=== PATIENT | female | born 1950 | race Caucasian/White ===

== ENCOUNTER 2020-07-30 14:24 | Outpatient (AMBR) | payer MEDICARE, OTHER, SELFPAY ==
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
--- NOTE | 2020-07-14 14:30 | PT.ODAYNRPT ---
PT Outpatient Daily Note Date of Service: 07/14/20 OP Daily Note Visit Reasons: right knee post op Outpatient Physical Therapy Treatment Date: 07/14/20 Subjective: Pt's knee feels okay. Pt been using the CPM and is now up to 95 deg. Pt is walking a little more at home without her walker Objective: Please see flow chart for list of ther ex performed Assessment: partial SAQ due to quad weakness. cues to correct GT to increase EKATERINA for better balance in PB. Plan: Continue with PT Length of Time (minutes) of Treatment: 45 Minutes Office Procedures PT Procedures PT Date of Service: 07/10/20 OP PT Eval Mod Complex 30 minutes: Yes PT Procedures PT Date of Service: 07/14/20 Gait Training 15 minutes: Yes Therapeutic Exercise 30 minutes: Yes
--- NOTE | 2020-07-16 13:43 | PT.ODAYNRPT ---
PT Outpatient Daily Note Date of Service: 07/16/20 OP Daily Note Visit Reasons: right knee post op Outpatient Physical Therapy Treatment Date: 07/16/20 Subjective: Pt's knee is better. Pt is up to 100 deg in CPM. Pt's been practicing her exercises at home. Objective: Please see flow chart for list of ther ex performed Assessment: notice increase quad activation with SAQ and Quad set. Pt was able to tolerate sci fit for 6 mins with complete cycle Plan: Continue with PT Length of Time (minutes) of Treatment: 45 Minutes Office Procedures PT Procedures PT Date of Service: 07/16/20 Therapeutic Exercise 45 minutes: Yes PT Procedures PT Date of Service: 07/10/20 OP PT Eval Mod Complex 30 minutes: Yes PT Procedures PT Date of Service: 07/14/20 Gait Training 15 minutes: Yes Therapeutic Exercise 30 minutes: Yes
--- NOTE | 2020-07-18 14:19 | PT.ODAYNRPT ---
PT Outpatient Daily Note Date of Service: 07/18/20 OP Daily Note Visit Reasons: right knee post op Outpatient Physical Therapy Treatment Date: 07/18/20 Subjective: Pt mention that she feels better and was not as sore after last treatment session. Pt is up in the 100s with CPM machine Objective: Please see flow chart for list of ther ex performed Assessment: tolerate exercises with minimal pain Plan: Continue with PT Length of Time (minutes) of Treatment: 30 Minutes Office Procedures PT Procedures PT Date of Service: 07/16/20 Therapeutic Exercise 45 minutes: Yes PT Procedures PT Date of Service: 07/10/20 OP PT Eval Mod Complex 30 minutes: Yes PT Procedures PT Date of Service: 07/14/20 Gait Training 15 minutes: Yes Therapeutic Exercise 30 minutes: Yes PT Procedures PT Date of Service: 07/18/20 Therapeutic Exercise 30 minutes: Yes
--- NOTE | 2020-07-23 16:08 | PT.ODAYNRPT ---
PT Outpatient Daily Note Date of Service: 07/23/20 OP Daily Note Visit Reasons: right knee post op Outpatient Physical Therapy Treatment Date: 07/23/20 Subjective: Pt noted some redness and warmth on her knee. Further mention that over the weekend green pus seep throughout one of the incision. Earlier today she took a photo of the knee and surgeon prescribed her antibiotics. Pt stop using her walker with short distance and denies of knee buckling. Objective: Please see flow chart for list of ther ex performed Assessment: noted increase warmth and redness around patella region which indicate she may have a closed infection but has already consulted with surgeon. Pt's exercises was done with slower pace to decrease knee pain Plan: Continue with PT Length of Time (minutes) of Treatment: 40 Minutes Office Procedures PT Procedures PT Date of Service: 07/16/20 Therapeutic Exercise 45 minutes: Yes PT Procedures PT Date of Service: 07/10/20 OP PT Eval Mod Complex 30 minutes: Yes PT Procedures PT Date of Service: 07/14/20 Gait Training 15 minutes: Yes Therapeutic Exercise 30 minutes: Yes PT Procedures PT Date of Service: 07/18/20 Therapeutic Exercise 30 minutes: Yes PT Procedures PT Date of Service: 07/23/20 Therapeutic Exercise 45 minutes: Yes
--- NOTE | 2020-07-25 10:55 | PT.ODAYNRPT ---
PT Outpatient Daily Note Date of Service: 07/25/20 OP Daily Note Visit Reasons: right knee post op Outpatient Physical Therapy Treatment Date: 07/25/20 Subjective: Pt mention that her knee is better but sore. Objective: Please see flow chart for list of ther ex performed Assessment: tolerate exercises with minimal pain Plan: Continue with PT Length of Time (minutes) of Treatment: 40 Minutes Office Procedures PT Procedures PT Date of Service: 07/16/20 Therapeutic Exercise 45 minutes: Yes PT Procedures PT Date of Service: 07/10/20 OP PT Eval Mod Complex 30 minutes: Yes PT Procedures PT Date of Service: 07/14/20 Gait Training 15 minutes: Yes Therapeutic Exercise 30 minutes: Yes PT Procedures PT Date of Service: 07/18/20 Therapeutic Exercise 30 minutes: Yes PT Procedures PT Date of Service: 07/23/20 Therapeutic Exercise 45 minutes: Yes PT Procedures PT Date of Service: 07/25/20 Therapeutic Exercise 45 minutes: Yes
--- NOTE | 2020-07-29 09:25 | PT.ODAYNRPT ---
PT Outpatient Daily Note Date of Service: 07/28/20 OP Daily Note Visit Reasons: right knee post op Outpatient Physical Therapy Treatment Date: 07/28/20 Subjective: pt states her knee doing better but still needs more strengthening. Objective: see flow sheet. Assessment: pt ambulates with no AD. pt tends to compensate with hip versus working the knee during her lateral step ups. educated pt with demonstrations of correct form in which she understood but needs more practice. pt not aware of compensation since surgery. pt pleasant and cooperative. completed all ther ex with ice pack post treatment. Plan: continue POC per PT. Length of Time (minutes) of Treatment: 30 Minutes STRUCTURAL METAL WORKER Service Modifier Method I: Divide the number of min of care provided by the STRUCTURAL METAL WORKER/ASHLEY by the total min of care provided then multiply by 100. If greater than 11 percent modifier is required. Method II: Divide the total time of care provided to patient by 10 (round to the nearest whole number) and add 1 min. to set the minimum time requirement. If treatment total was 60 min., then 10% of 6 min Did STRUCTURAL METAL WORKER provide more than 10% of the care?: Yes PT CQ modifier applied: CQ Modifier applied Office Procedures PT Procedures PT Date of Service: 07/16/20 Therapeutic Exercise 45 minutes: Yes PT Procedures PT Date of Service: 07/28/20 Therapeutic Exercise 30 minutes: Yes PT Procedures PT Date of Service: 07/10/20 OP PT Eval Mod Complex 30 minutes: Yes PT Procedures PT Date of Service: 07/14/20 Gait Training 15 minutes: Yes Therapeutic Exercise 30 minutes: Yes PT Procedures PT Date of Service: 07/18/20 Therapeutic Exercise 30 minutes: Yes PT Procedures PT Date of Service: 07/23/20 Therapeutic Exercise 45 minutes: Yes PT Procedures PT Date of Service: 07/25/20 Therapeutic Exercise 45 minutes: Yes
--- NOTE | 2020-07-30 15:07 | PTNOTE_ITS ---
PT Outpatient Daily Note Date of Service: 07/30/20 OP Daily Note Visit Reasons: right knee post op Outpatient Physical Therapy Treatment Date: 07/30/20 Subjective: Pt's knee still swells but feels better. TRIAGE REGISTERED NURSE use ice on the knee after last session and swelling decrease. Pt will like to ice longer today after her PT session Objective: Please see flow chart for list of ther ex performed Assessment: tolerate exercises; ice continues to help post therapy with pain and swelling Plan: Continue with PT Length of Time (minutes) of Treatment: 40 Minutes Office Procedures PT Procedures PT Date of Service: 07/16/20 Therapeutic Exercise 45 minutes: Yes PT Procedures PT Date of Service: 07/28/20 Therapeutic Exercise 30 minutes: Yes PT Procedures PT Date of Service: 07/30/20 Therapeutic Exercise 45 minutes: Yes PT Procedures PT Date of Service: 07/10/20 OP PT Eval Mod Complex 30 minutes: Yes PT Procedures PT Date of Service: 07/14/20 Gait Training 15 minutes: Yes Therapeutic Exercise 30 minutes: Yes PT Procedures PT Date of Service: 07/18/20 Therapeutic Exercise 30 minutes: Yes PT Procedures PT Date of Service: 07/23/20 Therapeutic Exercise 45 minutes: Yes PT Procedures PT Date of Service: 07/25/20 Therapeutic Exercise 45 minutes: Yes
== END 2020-07-30 23:59 | disposition home or self-care (01) ==
PROVIDERS: PCP Internal Medicine; Referring Provider Internal Medicine; Visit Provider Orthopaedic Surgery Orthopaedic Trauma
DX: Z47.1 Aftercare following joint replacement surgery (principal); Z96.651 Presence of right artificial knee joint; M25.561 Pain in right knee; R26.2 Difficulty in walking, not elsewhere classified; R26.89 Other abnormalities of gait and mobility
CPT/HCPCS: 97110; 97116; 97162